=== PATIENT | female | born 1985 ===

== ENCOUNTER → 2016-06-07 | Outpatient (CLI) | payer OTHER | END | disposition home or self-care (01) | LOC: C.PAPS 11:48 | PROVIDERS: ATTEND Obstetrics & Gynecology | DX: Z12.4 Encounter for screening for malignant neoplasm of cervix (principal) ==

== ENCOUNTER 2018-03-18 09:43 | Inpatient (IN) ==
[2018-03-18] MEDS ORDERED: LACTATED RINGER'S 1,000 ML IV PRN ×3 (10:38→15:00)
[2018-03-18] MEDS ORDERED: PENICILLIN G POTASSIUM 3 MU in DEXTROSE 5% 100 ML IV PRN (10:38)
[2018-03-18] MEDS ORDERED: OXYTOCIN 30 UNITS/500 ML BAG IV PRN ×3 (10:38→20:24)
[2018-03-18] MEDS ORDERED: PENICILLIN G POTASSIUM 6 MU in DEXTROSE 5% 250 ML IV STA (11:03)
[2018-03-18 11:06] LABS: Hematocrit (blood only) 38.8 % (37-47); Hemoglobin 13.1 g/dL (12.0-16.0); Mean Corpuscular Volume 87.2 fL (80-100); Mean Platelet Volume 10.8 fL (7.4-10.4); Platelet Count 216 K/uL (130-400); RDW Coefficient of Variation 13.9 % (11.5-14.5); RDW Standard Deviation 43.9 fL (36.4-46.3); Red Blood Count 4.45 M/uL (4.2-5.4); White Blood Count 10.82 K/uL (4.8-10.8)
[2018-03-18] MEDS: LACTATED RINGER'S 1,000 ML IV SCH ×2 (11:11→15:00)
[2018-03-18 11:19] LABS: Mean Corpuscular Hgb Conc 33.8 g/dL (32-36)
--- NOTE | 2018-03-18 12:04 | History & Physical Report ---
Date of Service March 18, 2018 Assessment & Plan (1) Normal intrauterine in third trimester: Fetus: Cat 1 Labor: SROM, will start Oxytocin, Fetus cephalic by BSUS GBS +: PCN Pain: Epidural PRN Anticipate History of Present Illness Chief Complaint: SROM Primary Care Provider: Ashley Ferrell MD, FACOG 32yo at 38.6 weeks GA. Patient reporting SROM around 830am today. Denied regular ctx, VB. Normal FM. PNI: GBS+. Otherwise uncomplicated and Hx. Patient has had 1 prior at term that was uncomplicated LABs: B+, Rubella immune, GBS + Allergies Allergy/AdvReac Type Severity Reaction Status Date / Time No Known Allergies Allergy Unverified 03/18/18 11:40 Home Medications Home Medications Medication Instructions Recorded Confirmed Type PNV cmb#95-ferrous fumarate-FA 1 tab PO DAILY 03/18/18 03/18/18 History [] Vitamin B-6 100 mg PO DAILY 03/18/18 03/18/18 History Patient History Medical History Cystic fibrosis carrier Fibroid, uterine caused complication with last ; followed and WNL now. Umbilical hernia repaired at age 8-9 per patient. Physical Exam 2 Vital Signs (Past 24 Hours): Last Vital Signs Temp 37.4 C 03/18/18 09:54 Pulse 94 H 03/18/18 09:54 Resp 18 03/18/18 09:54 BP 126/77 03/18/18 09:54 Genitourinary: Manual OB Exam: + cervical dilation 1 cm, + cervical effacement 20%, + station high and + amniotic fluid clear OB Exam Monitor Tracing: + external FHT monitor used and + category I
[2018-03-18] MEDS ORDERED: BUPIVACAINE 0.25% 30 ML VIAL ONE (13:48)
[2018-03-18] MEDS ORDERED: ePHEDrine sulfate 50 MG/ML AMP ONE (13:48)
[2018-03-18] MEDS ORDERED: fentaNYL citrate 100 MCG/2 ML VIAL ONE (13:49)
[2018-03-18] MEDS ORDERED: fentaNYL 2MCG/ML ROPIV 1.25MG/ML 100 ML BAG EPI ONE (13:50)
--- NOTE | 2018-03-18 14:25 | Anesthesiology Consultation ---
Date of Service March 18, 2018 Assessment & Plan Chart Review Chart Review: Acceptable Risk for Labor Epidural Consults Requested none ASA ASA2 Proposed Anesthesia Anesthesia Type: Labor Epidural NPO Date Last Intake of Fluids: 03/18/18 Time Last Intake of Fluids: 13:24 Date Last Intake of Solids: 03/18/18 Time Last Intake of Solids: 09:30 History Height/Weight Height: 1.57 m Weight: 65.317 kg Allergies Allergy/AdvReac Type Severity Reaction Status Date / Time No Known Allergies Allergy Unverified 03/18/18 11:40 Medications Home Medications Medication Instructions Recorded Confirmed Last Taken PNV cmb#95-ferrous fumarate-FA 1 tab PO DAILY 03/18/18 03/18/18 03/18/18 07:00 [] Vitamin B-6 100 mg PO DAILY 03/18/18 03/18/18 03/18/18 07:00 Active Medications Generic Name Dose Route Start Last Admin Trade Name Freq PRN Reason Stop Dose Admin Lactated Ringer's 1,000 mls @ 125 mls/hr 03/18/18 10:45 03/18/18 13:50 Lr IV 03/20/18 10:44 999 mls/hr .Q8H DARON Infusion Oxytocin 30 units in 500 mls @ 6 mls/hr 03/18/18 10:38 03/18/18 13:10 Pitocin IV 03/20/18 10:37 0.36 units/hr .Q24H PRN 6 mls/hr Labor Induction/Augmentation Titration Protocol 0.36 UNITS/HR Past Medical History Medical History Cystic fibrosis carrier Fibroid, uterine caused complication with last ; followed and WNL now. Umbilical hernia repaired at age 8-9 per patient. Past Anesthesia History No Hx of Anesthesia Complications and No Family Hx of Anesthesia Complications History of PONV No Motion Sickness Screening History of Motion Sickness: No Social History Smoking Status: Never smoker Do You Dip or Chew Tobacco: No Hx Alcohol Use: No Hx Substance Use: No substance use type: does not use Exercise / Class Metabolic Activity II 4-5 Yardwork/Stairs/Walk up hill Physical Exam Vital Signs Last Vital Signs Temp 37.0 C 03/18/18 14:00 Pulse 97 H 03/18/18 14:21 Resp 22 03/18/18 14:00 BP 126/77 03/18/18 09:54 Pulse Ox 92 03/18/18 14:21 ENMT Mouth: + TMJ clicking; no TMJ abnormality Thyromental Distance: < 3.5 Finger Breadths Mallampati Class: II Neck + abnormal visual inspection and neck extension not limited Respiratory Auscultation: lungs clear to auscultation bilaterally Cardiovascular Rate/Rhythm: regular rate and regular rhythm Psychiatric Orientation: alert and oriented x 3 Testing Laboratory Results 03/18/18 10:46
[2018-03-18] MEDS ORDERED: PROMETHAZINE HCL 12.5 MG in SODIUM CHLORIDE 0.9% 50 ML IV PRN (15:00)
[2018-03-18] MEDS ORDERED: fentaNYL 2MCG/ML ROPIV 1.25MG/ML 100 ML BAG EPI PRN (15:00)
[2018-03-18] MEDS ORDERED: ONDANSETRON INJ 2 MG/ML 2 ML VIAL IV PRN (15:00)
[2018-03-18] MEDS ORDERED: NALOXONE HCL 0.4 MG/1 ML VIAL/CARP IV PRN (15:00)
[2018-03-18] MEDS ORDERED: NALOXONE HCL 1 MG in SODIUM CHLORIDE 0.9% 1000ML 1,000 ML IV PRN (15:00)
[2018-03-18] MEDS ORDERED: DiphenhydrAMINE HCL 50 MG/ML VIAL IV PRN (15:00)
[2018-03-18] MEDS ORDERED: NALBUPHINE HCL INJ 10 MG/ML AMP IV PRN (15:00)
[2018-03-18] MEDS ORDERED: ePHEDrine sulfate 50 MG/ML AMP IV PRN (15:00)
--- NOTE | 2018-03-18 15:33 | Obstetrical Progress Note ---
Date of Service March 18, 2018 Assessment & Plan (1) Normal intrauterine in third trimester: Fetus: Cat 1 Labor: Progressing, SROM, continue Oxytocin, Fetus cephalic by BSUS GBS +: PCN Pain: Epidural Anticipate Subjective Patient doing well. Epidural placed Physical Exam 2 Vital Signs (Past 24 Hours): Last Vital Signs Temp 36.6 C 03/18/18 15:08 Pulse 100 H 03/18/18 15:21 Resp 16 03/18/18 15:08 BP 123/77 03/18/18 15:21 Pulse Ox 99 03/18/18 15:16 Genitourinary: Manual OB Exam: + cervical dilation 4 cm, + cervical effacement 70%, + station -2 and + amniotic fluid clear OB Exam Monitor Tracing: + external FHT monitor used and + category I
--- NOTE | 2018-03-18 15:50 | Obstetrical Progress Note ---
Date of Service March 18, 2018 Assessment & Plan (1) Normal intrauterine in third trimester: Fetus: Cat 2, Oxytocin d/jo ann for 3minute decel with continued variable decels to 90s Labor: Progressing, SROM, continue Oxytocin, Fetus cephalic by BSUS GBS +: PCN Pain: Epidural Anticipate Subjective Oxytocin D/jo ann for 3 minute decel to 60s Physical Exam 2 Vital Signs (Past 24 Hours): Last Vital Signs Temp 36.6 C 03/18/18 15:08 Pulse 101 H 03/18/18 15:33 Resp 16 03/18/18 15:08 BP 128/70 03/18/18 15:33 Pulse Ox 100 03/18/18 15:32 Genitourinary: OB Exam Monitor Tracing: + category II and + variable decelerations
[2018-03-18] MEDS ORDERED: BENZOCAINE 20% AER SPR 82.5 GM CAN EXT PRN (20:24)
[2018-03-18] MEDS ORDERED: BISACODYL 10 MG SUPP PR PRN (20:24)
[2018-03-18] MEDS ORDERED: DIPHTHERIA/TETANUS/PERTUSSIS 0.5 ML SYR/VIAL IM ONE (20:24)
[2018-03-18] MEDS ORDERED: SUPERCREAM 0.870% 15 GM JAR EXT PRN (20:24)
[2018-03-18] MEDS ORDERED: HYDROCORTISONE ACETATE 25 MG SUPP PR PRN (20:24)
--- NOTE | 2018-03-18 21:12 | Anesthesia Procedure Note ---
Date of Service March 18, 2018 Anesthesia Post Epidural Note Vital Signs Vital Signs: Temp Pulse Resp BP Pulse Ox 03/18/18 21:06 114 H 114/71 03/18/18 20:50 117 H 106/64 03/18/18 20:35 114 H 98/58 L 03/18/18 20:20 118 H 104/62 03/18/18 20:17 124 H 96/68 L 98 03/18/18 20:04 136 H 101/63 03/18/18 20:02 139 H 97 03/18/18 19:48 130 H 128/81 03/18/18 19:47 134 H 97 03/18/18 19:33 118 H 110/70 03/18/18 19:32 117 H 97 03/18/18 19:17 125 H 107/69 97 03/18/18 19:02 118 H 103/71 96 03/18/18 19:00 36.9 C 18 03/18/18 18:48 122 H 98/67 L 03/18/18 18:47 120 H 96 03/18/18 18:32 127 H 95 03/18/18 18:17 123 H 120/83 97 03/18/18 18:02 122 H 97 03/18/18 17:47 128 H 98 03/18/18 17:32 117 H 108/73 98 03/18/18 17:19 100 H 105/68 03/18/18 17:17 103 H 97 03/18/18 17:03 105 H 107/65 03/18/18 17:02 108 H 97 03/18/18 17:00 36.6 C 18 03/18/18 16:47 97 H 104/55 L 96 03/18/18 16:32 106 H 106/65 98 03/18/18 16:19 113 H 115/66 03/18/18 16:17 107 H 97 03/18/18 16:03 111 H 117/73 03/18/18 16:02 112 H 98 03/18/18 15:47 108 H 121/73 100 03/18/18 15:33 101 H 128/70 03/18/18 15:32 100 H 100 03/18/18 15:21 100 H 123/77 03/18/18 15:17 114 H 120/69 03/18/18 15:16 107 H 99 03/18/18 15:15 112 H 118/67 03/18/18 15:13 110 H 119/65 03/18/18 15:11 114 H 120/69 99 03/18/18 15:09 116 H 120/63 03/18/18 15:08 36.6 C 16 03/18/18 15:07 105 H 124/67 03/18/18 15:06 111 H 98 03/18/18 15:05 121 H 120/67 03/18/18 15:03 110 H 123/63 03/18/18 15:02 117 H 88 L 03/18/18 15:01 125 H 86/51 L 100 03/18/18 14:59 121 H 102/59 L 03/18/18 14:57 116 H 106/55 L 03/18/18 14:56 111 H 96 03/18/18 14:55 118 H 111/54 L 03/18/18 14:54 103 H 112/63 03/18/18 14:52 113 H 83/44 L 03/18/18 14:51 104 H 85/54 L 100 03/18/18 14:49 98 H 87/49 L 03/18/18 14:47 110 H 92/50 L 03/18/18 14:46 112 H 98 03/18/18 14:45 122 H 105/55 L 88 L 03/18/18 14:43 105 H 112/64 03/18/18 14:41 101 H 112/64 94 03/18/18 14:36 95 H 96 03/18/18 14:31 104 H 98 03/18/18 14:26 103 H 98 03/18/18 14:21 97 H 92 03/18/18 14:19 101 H 88 L 03/18/18 14:16 95 H 95 03/18/18 14:11 96 H 95 03/18/18 14:09 103 H 91 03/18/18 14:06 95 H 99 03/18/18 14:00 37.0 C 22 03/18/18 09:54 37.4 C 94 H 18 126/77 Notes Mental Status: alert / awake / arousable and participated in evaluation Nausea / Vomiting: adequately controlled Pain: adequately controlled Airway Patency, RR, SpO2: stable & adequate BP & HR: stable & adequate Hydration State: stable & adequate Neuraxial Anesthesia: was administered and sensory block is resolving Anesthetic Complications: no major complications apparent and Pt Satisfied with anesthetic care Epidural: Removed without complications and With tip intact
--- NOTE | 2018-03-18 21:56 | Delivery Summary ---
DATE OF OPERATION: 03/18/2018 PROCEDURE: Normal spontaneous vaginal delivery with first degree laceration repair. SURGEON: Ventura Pickens MD PREOPERATIVE DIAGNOSES: 1. Single intrauterine at 38 weeks 6 days gestational age. 2. Group B streptococcus positive. 3. Labor. POSTOPERATIVE DIAGNOSES: 1. Single intrauterine at 38 weeks 6 days gestational age. 2. Group B streptococcus positive. 3. Labor. 4. Delivered. ESTIMATED BLOOD LOSS: 200 mL DRAINS: None. FLUIDS: Continuous lactated ringer. URINE OUTPUT: Not measured. SPECIMENS: None. FINDINGS: Viable female infant with weight pending and Apgars of 8 and 9 at 1 and 5 minutes respectively. INDICATIONS: Ms. Ferrell is a 32-year-old G2, P1-0-0-1 at 38 weeks 6 days gestational age, presented with leakage of fluid. The patient was noted to be grossly ruptured and was admitted for spontaneous rupture of membranes. The patient was started on oxytocin per regular protocol, received penicillin for GBS positive status. After she reached approximately 4 cm dilation, she opted to proceed with epidural placement. The patient then progressed in labor with continued oxytocin augmentation. The oxytocin was noted to be discontinued on one occasion for prolonged deceleration. There was also noted to be variable decelerations throughout the latter half of approximately 3-4 hours during her labor course. There was, however, noted to be good variability and the patient was progressing well in labor after recent readministration of the oxytocin. DESCRIPTION OF PROCEDURE: The patient presented 10 cm dilated, 100% effaced positive, 1 station, pushed over intact perineum with epidural anesthesia and delivered a viable female infant with the weight and Apgars as noted above. Head of the delivered in MIREYA position, rest into right transverse. No nuchal cord was noted. Body and shoulders quickly followed. The was noted to have terminal meconium and was suction bulbed immediately after delivery. The was then noted to be vigorous with an approximately 10-15 seconds after delivery, was delivered to the maternal abdomen. One-minute delayed cord clamping was initiated for that which the cord was double clamped and cut. remained in the maternal abdomen and was noted to be continued to be vigorous. Cord segment and cord blood were then obtained. Attention was then turned to deliver the placenta. It was delivered intact with gentle cord with gentle cord traction. On inspection of vagina, perineum, and cervix, there was noted to be a first degree perineal laceration, which was repaired with 0 Vicryl in a continuous running stitch. Needle, sponge, and instrument counts were correct at the completion of the case. Both mother and were in stable condition. I attest to the content of the Intraoperative Record and any orders documented therein. Any exception s are noted below.
[2018-03-18] MEDS: ACETAMINOPHEN 325 MG TAB PO PRN (23:28)
[2018-03-19] MEDS: IBUPROFEN 600 MG TAB PO PRN ×5 (01:06→23:42)
--- NOTE | 2018-03-19 05:08 | Obstetrical Progress Note ---
Date of Service March 19, 2018 Assessment & Plan (1) Normal intrauterine in third trimester: PP day 1. Doing well Meeting PP goals. Continue to monitor Subjective Ambulation: ambulating normally Voiding: no voiding problems Diet Tolerance:: regular diet Lochia:: Moderate Feeding Type:: breast feeding Physical Exam Vital Signs (Past 24 Hours) Last Vital Signs Temp 36.5 C 03/19/18 04:50 Pulse 89 03/19/18 04:50 Resp 18 03/19/18 04:50 BP 107/67 03/19/18 04:50 Pulse Ox 96 03/18/18 23:25 Genitourinary OB Exam Abdomen: + fundal height Fundus: + firm and + relation to umbilicus ( 1cm below); not tender
[2018-03-19 06:03] LABS: Hematocrit (blood only) 32.7 % (37-47); Hemoglobin 10.9 g/dL (12.0-16.0); Mean Corpuscular Hgb Conc 33.3 g/dL (32-36); Mean Corpuscular Volume 86.7 fL (80-100); Mean Platelet Volume 10.1 fL (7.4-10.4); Platelet Count 189 K/uL (130-400); RDW Standard Deviation 44.1 fL (36.4-46.3); Red Blood Count 3.77 M/uL (4.2-5.4)
[2018-03-19] MEDS: DOCUSATE SODIUM 100 MG CAP PO SCH (08:30)
[2018-03-19] MEDS: PRENATAL VITAMIN 1 TAB PO SCH (08:30)
[2018-03-19] MEDS: ACETAMINOPHEN 325 MG TAB PO PRN ×3 (11:19→22:11)
[2018-03-19] MEDS ORDERED: SENNA 8.6 MG TAB PO SCH (17:30)
[2018-03-19] MEDS ORDERED: BISACODYL 5 MG TABEC PO SCH (20:00)
[2018-03-20] MEDS: ACETAMINOPHEN 325 MG TAB PO PRN (04:07)
[2018-03-20] MEDS: IBUPROFEN 600 MG TAB PO PRN ×2 (05:58→17:50)
--- NOTE | 2018-03-20 07:48 | Obstetrical Progress Note ---
Date of Service <Lola Alvarez MD - Last Filed: 03/20/18 07:48> March 20, 2018 Assessment & Plan <Lola Alvarez MD - Last Filed: 03/20/18 07:48> (1) Normal intrauterine in third trimester: 32yo on mar 18 at 38.6 weeks Discharge today-instructions reviewed Day #:: 2 Subjective <Lola Alvarez MD - Last Filed: 03/20/18 07:48> Ambulation: ambulating normally Voiding: no voiding problems Passing Gas:: Yes Diet Tolerance:: regular diet Lochia:: Moderate Feeding Type:: breast feeding Current Pain Level(1-10): 3 Constitutional: no fever and no chills Respiratory: no dyspnea Cardiovascular: no chest pain and no palpitations Gastrointestinal: no nausea and no vomiting Genitourinary (female): no dysuria Physical Exam <Lola Alvarez MD - Last Filed: 03/20/18 07:48> Vital Signs (Past 24 Hours) Last Vital Signs Temp 36.7 C 03/19/18 23:20 Pulse 86 03/19/18 23:20 Resp 16 03/19/18 23:20 BP 113/78 03/19/18 23:20 Pulse Ox 98 03/19/18 23:20 Constitutional WD/WN, vitals as above Respiratory normal respiratory effort, lungs clear to auscultation Cardiovascular RRR, no murmur, no edema Genitourinary OB Exam Abdomen: + fundal height Fundus: + firm and + relation to umbilicus (at umbilicus) <Ventura Pickens MD - Last Filed: 03/23/18 09:22> Co-Signing Physician Notes Patient evaluated and agree with the above finding and plan
[2018-03-20] MEDS: DOCUSATE SODIUM 100 MG CAP PO SCH (08:53)
[2018-03-20] MEDS: PRENATAL VITAMIN 1 TAB PO SCH (08:53)
== END 2018-03-20 19:40 | disposition home or self-care (01) | DRG 806 ==
LOC: OPB 09:43 → 4S1 09:44 → 4S2 23:08
DX: O70.0 First degree perineal laceration during delivery; Z22.1 Carrier of other intestinal infectious diseases; Z3A.38 38 weeks gestation of pregnancy; O99.834 Other infection carrier state complicating childbirth; Z37.0 Single live birth